=== PATIENT | male | born 1960 | race Caucasian/White ===

== ENCOUNTER 2025-03-28 09:00 | Outpatient (AMB) | payer BC, SELFPAY ==
--- NOTE | 2025-03-28 09:31 | MHC.OFFVIS ---
Vital Signs 03/28/25 09:32 Height 6 ft Weight 161 lb BMI 21.8 BP 128/68 Blood Pressure Location Rt brachial Position Sitting Pulse 61 Pulse Source Pulse Oximeter Pulse Oximetry (%) 97 Oxygen Delivery Method Room Air Intake Visit Reasons: ENP - Sleep apnea (Need Insurance) Intake Note: Patient presents [employer] MAYCOL. Patient had Sleep study needs CPAP. HST in chart(AHI-8.5, KARI 80%. APAP 5-20). Accompanied by: Self / Same As Patient Allergies No Known Allergies Allergy (Verified 03/28/25 09:34) HPI Comments Details: 64 year old male referred to us by his pcp Dr. Mishra for evaluation of MAYCOL. 08/2024 HST reviewed with pt today mild maycol AHI is 9.9 and oxygen nadirs to 90% and below 90% for 236 min. He is a [employer] year [employer], he was exposed to many environmental toxins due to his [employer] work. He smokes 2 packs of cigarettes daily out of boredom. He tried the gum/ and patches however was not ready to quit, and would like to try Wellbutrin today. He goes to bed at 8:30 pm and wakes up at 2:30am for work in [employer], he works there until about 2pm. 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 He denies, snoring, gasping for air, witnessed apneas as he lives alone and does not know if this is happening. Denies parasomnias, or abnormal behaviors. Denies morning headaches, grinding of the teeth. Mood is stable. Memory is okay. Diet is good. He does not drink alcohol. [facility] Medical History Tobacco dependence Smoker Sleep apnea Rotator cuff impingement syndrome PTSD (post-traumatic stress disorder) Peptic ulcer disease Neuropathy Hyperlipemia HTN (hypertension) Essential tremor Erectile dysfunction associated with type 2 diabetes mellitus Diabetes mellitus Costal chondritis COPD (chronic obstructive pulmonary disease) Colonic polyp Surgical History Hx of appendectomy Family History Mother Breast cancer Social History Patient Tobacco Use Status: Current everyday Tobacco user Tobacco use type: Cigarette Physical Exam Vital Signs: Last Vital Signs Pulse 61 03/28/25 09:32 BP 128/68 03/28/25 09:32 Pulse Ox 97 03/28/25 09:32 Oxygen Delivery Method Room Air 03/28/25 09:32 BMI result Body Mass Index 21.8 Const General: cooperative, comfortable and no acute distress Nutritional Appearance: average body habitus Orientation/consciousness: patient oriented x3 HEENT Face and sinus: Yes face symmetric Teeth and gingiva: other (mallmapti score is 3) Eyes Pupils: Equal, round and reactive pupils present Neck Neck: Yes full ROM Resp Effort & Inspection: normal respiratory effort and able to speak in complete sentences Neuro General: patient oriented x3 and moves all extremities Cranial nerves: Yes Equal, round and reactive pupils present, Yes Normal accommodation reflex present, Yes Normal facial strength present, Yes Midline tongue present, Yes Ability to bilaterally rotate head present and Yes Ability to bilaterally elevate shoulders present Cognition (Neuro): normal cognition Gait exam (Neuro): Normal gait present Motor exam (neuro): 5/5 motor strength present throughout and Normal motor muscle tone present throughout Psych Appearance: grossly normal Thought process: Normal thought process present Assessment & Plan Assessment & Plan (1) Excessive daytime sleepiness: Code(s): G47.19 - Other hypersomnia Category: Medical (2) Chronic fatigue: Code(s): R53.82 - Chronic fatigue, unspecified Category: Medical (3) Smoker: Code(s): F17.200 - Nicotine dependence, unspecified, uncomplicated Category: Social Hx Plan Excessive daytime sleepiness HST reviewed with pt. mild maycol AHI is 9.9 and O2 Nadirs to 90% and below 90% for 236min, start cpap [id number] and f/u for compliance pt. education re mask trial and meeting compliance of >4 hours a night. RX sent for cpap order. Chronic Fatigue Lab anatoliy, request Labs from his pcp Smoker Wellbutrin 150mg po qam F/U in 3 months Orders: Orders Vitamin D 25-OH Total Today F17.200 - Nicotine dependence, unspecified, uncomplicated, G47.19 - Other hypersomnia, R53.82 - Chronic fatigue, unspecified Vitamin B6 Today F17.200 - Nicotine dependence, unspecified, uncomplicated, G47.19 - Other hypersomnia, R53.82 - Chronic fatigue, unspecified Vitamin B12 and Folate Today F17.200 - Nicotine dependence, unspecified, uncomplicated, G47.19 - Other hypersomnia, R53.82 - Chronic fatigue, unspecified Vitamin B1 Today F17.200 - Nicotine dependence, unspecified, uncomplicated, G47.19 - Other hypersomnia, R53.82 - Chronic fatigue, unspecified Homocysteine Today F17.200 - Nicotine dependence, unspecified, uncomplicated, G47.19 - Other hypersomnia, G47.9 - Sleep disorder, unspecified, R53.82 - Chronic fatigue, unspecified, R53.83 - Other fatigue Methylmalonic Acid Today F17.200 - Nicotine dependence, unspecified, uncomplicated, G47.19 - Other hypersomnia, G47.9 - Sleep disorder, unspecified, R53.82 - Chronic fatigue, unspecified, R53.83 - Other fatigue Hemoglobin A1c Today F17.200 - Nicotine dependence, unspecified, uncomplicated, G47.19 - Other hypersomnia, R53.82 - Chronic fatigue, unspecified Ferritin Today F17.200 - Nicotine dependence, unspecified, uncomplicated, G47.19 - Other hypersomnia, R53.82 - Chronic fatigue, unspecified Medications: New bupropion HCl SR (Wellbutrin SR) take one tablet daily at in the morning with breakfast. 150 mg PO BEDTIME 30 tabs 0RF smoking 1 month MDD 150mg F17.200 - Nicotine dependence, unspecified, uncomplicated Patient Instructions: Sleep Hygiene provided: set a scheduled bedtime and wake time to help regulate the circadian rhythm and balance the release of pituitary hormones. Sleep in a dark room, temperatures below 68 degrees, and no devices n bed. Limit caffeinated products 6 hours prior to bed, and limit fluids 2-4 hours prior to bed. Gentle night yoga, diffusing essential oils, and playing soft music can be relaxing. Coding Level of Care Code New Pt Level 4 (13392) Diagnoses Excessive daytime sleepiness G47.19 Chronic fatigue R53.82 Smoker F17.200 Sleep Questionnaire Difficulty falling asleep: No Difficulty staying asleep?: Yes Number of arousals: 1x Snoring: No Witnessed apneas: No Gasping arousals: No Nocturia: No GERD: No Vivid dreams: No Acting out dreams: No Abnormal behavior in sleep: No Abnormal movements in sleep: No Morning headaches: No Excessive daytime sleepiness: Yes Daytime naps: Yes (1hour to 3 hours) Restless legs: No Hallucinations: No Sleep paralysis: No Drop attacks: No Sleep Study: Yes CPAP: No
[2025-03-28 09:32] VITALS: BP 128/68; PULSE 61; O2SAT 97; BMI 21.8
== END 2025-03-28 10:17 | disposition home or self-care (01) ==
LOC: HO.HSMS 09:00
PROVIDERS: PCP Family Medicine; Visit Provider Physician Assistant Medical
DX: G47.19 Other hypersomnia (principal); R53.82 Chronic fatigue, unspecified; F17.200 Nicotine dependence, unspecified, uncomplicated
CPT/HCPCS: 99204